=== PATIENT | female | born 1975 | race Caucasian/White ===

== ENCOUNTER 2019-10-11 09:34 | Outpatient (CLI) | payer OTHER, SELFPAY ==
--- NOTE | 2019-10-12 16:54 | ONC FU_ITS ---
Dr. De Santiago follow up note Patient: Love Pritchett Unit #: [id number]: [id number] Dicatated By: Flora De Santiago M.D.Date of Visit:Oct 11, 2019 Onc Med Follow-up/Prog Note History of Present Illness: Mrs. Love Pritchett, is a 44-year-old female with history of off and on epigastric pain associated with nausea vomiting diarrhea sometimes passage of mucus since March 2019. On 04/16/[address] scan of abdomen pelvis which showed stable cholecystectomy, mild to moderate bowel thickening in the distal small bowel including the terminal ileum consistent with [id number] infectious enteritis versus inflammatory bowel disease. Subsequently underwent EGD and colonoscopy on 04/28/2019 which showed in the lower third esophagus, reflux disease was present. In the prepyloric area, mild striped gastritis was seen. There was no mucosal bleeding. In the duodenal bulb, a sessile polyp 2 mm x 2 mm was seen, nonbleeding, polyp was hyperplastic in appearance and was completely excised by snare hot and final pathology report came back well-differentiated neuroendocrine tumor, low-grade, (carcinoid tumor). Patient underwent octreotide scan on 05/19/2019 and it came back normal. Colonoscopy was unremarkable Chromogranin A level was checked as per patient it was in the upper side of normal range. Follow-up CT scan of abdomen pelvis done on 07/09/2019 showed dissolved previous enterocolitis seen on 04/16/2019. No acute findings of abdomen pelvis. Prior cholecystectomy. Tiny nonobstructive lower pole left renal calculus. Came for follow-up, denies any specific complaints except occasionally nausea and vomiting but responding well to Zofran. No hemoptysis or hematemesis, no facial flushing, no bronchial wheezing, no diarrhea. As per patient she was on acid reduction therapy on a regular basis but then changed it to as-needed basis. Patient was referred to [facility] neuroendocrine oncology clinic for evaluation for clinical trial, as per patient she is scheduled to go there in January 2020. Medications: Estarylla 1 Tablet (of 0.25-35 mg - mcg) Oral daily, Lisinopril-hydroCHLOROthiazide 1 Tablet (of 20-25 mg) Oral daily Allergies: No Known Allergies. Review of Systems: Constitutional - Appetite is good and weight is stable. No fever, chills, hot flashes, or night sweats. Energy level is fair, ENMT - No sinus congestion/drainage. No mouth sores. No sore throat or difficulty swallowing, Hematologic/Lymphatic - No abnormal bruising or bleeding, Respiratory - No shortness of breath. No cough. No pleuritic pain or hemoptysis, Cardiovascular - No angina pain. No palpitations, Gastrointestinal - Positive for nausea and vomiting. No heartburn or acid reflux. Occasional diarrhea, no constipation. No blood in the stool or black stools, Genitourinary (F) - No dysuria or hematuria. No urinary frequency. No urgency or incontinence, Musculoskeletal - No joint or bone pain, Neurologic - No headache or dizziness. No numbness/paresthesias or other focal neurologic symptoms, Psychiatric - No anxiety or depression. No insomnia. Vital Signs: Performed on Oct 11, 2019 09:38 Height - 60.00 in Weight - 164.8 lbs (HIGH) BSA - 1.72 sq.m BMI - 32.19 (HIGH) Temperature - 98.4 F Pulse - 94 /min Respiration - 18 /min BP - 120/73 mm(hg) O2 Sat - 987 % (HIGH) Pain - 1 Performance Status: 0 - Fully active, able to carry on all predisease activities without restrictions. (ECOG) Physical Examination: ENMT - No oral exudates, ulcers, masses, thrush or mucositis. Oropharynx clear. Tongue normal, Respiratory - Lungs are clear to auscultation without rhonchi or wheezing, Cardiovascular - Regular rate and rhythm of heart, Abdomen - Non-tender, non-distended, Good bowel sounds. No guarding or rebound tenderness. No pulsatile masses, Extremities - no edema. Lab/Imaging: Most recent lab results are not available for this patient. Impression: Well-differentiated neuroendocrine tumor, low-grade ,( carcinoid tumor) in duodenal polyp status post EGD and polyp removal on 04/28/2019 Immunohistochemistry positive for CD 56, chromogranin A, CK cocktail, synaptophysin Ki-67 less than 3% positive nuclei Octreotide scan done on 05/19/[address] scan of abdomen pelvis done on 04/16/2019 Showed [id number] bowel thickening in the distal small bowel including the terminal ileum consistent with mild to moderate infectious enteritis versus inflammatory bowel disease. Plan: Discussed with patient regarding her concerns and questions, especially after no nausea or vomiting which could be due to underlying gastritis patient was suggested to discuss with regarding acid reduction therapy on regular basis then on as-needed basis as it can cause rebound hyperacidity thus nausea or vomiting. Other possibility could be psychogenic, patient appeared very anxious. There is a no signs symptoms suggestive of carcinoid related signs symptoms e.g. no facial flushing, no bronchial wheezing, no watery diarrhea, no abdominal pain more over at the time of diagnosis she had early-stage carcinoid tumor. Her chromogranin A level was on the upper side of normal and it was repeated today and result is pending. At this point no new recommendations rather awaiting evaluation at [facility] for clinical trials if available and she will return to clinic after her visit to [place] and if repeat chromogranin A level stay within normal range then we'll see her on as-needed basis. Signed By: Flora De Santiago M.D. <<Signature on File>>
[2019-10-14 09:46] LABS: Chromogranin A 38 ng/mL (25-140)
== END 2019-10-11 09:35 | disposition home or self-care (01) ==
LOC: ONCMED 09:36
PROVIDERS: Family Provider Family Medicine; PCP Family Medicine; Visit Provider Internal Medicine Hematology & Oncology
DX: C7A.010 Malignant carcinoid tumor of the duodenum (principal); K21.9 Gastro-esophageal reflux disease without esophagitis; N20.0 Calculus of kidney; Z79.899 Other long term (current) drug therapy
CPT/HCPCS: 36415; 86316; G0463

== ENCOUNTER → 2020-02-08 14:29 | Outpatient (BNVA) | payer OTHER, SELFPAY | PROVIDERS: Family Provider Family Medicine; PCP Family Medicine; Visit Provider Family Medicine | DX: Z12.31 Encounter for screening mammogram for malignant neoplasm of breast (principal) | CPT/HCPCS: 84450; 87070 ==

== ENCOUNTER → 2020-03-08 11:17 | Outpatient (BNVA) | payer OTHER, SELFPAY | PROVIDERS: Family Provider Family Medicine; PCP Family Medicine; Visit Provider Internal Medicine | DX: R50.9 Fever, unspecified (principal); Z20.828 Contact with and (suspected) exposure to other viral communicable diseases | CPT/HCPCS: 87635 ==

== ENCOUNTER → 2020-04-04 15:45 | Outpatient (BNVA) | payer OTHER, SELFPAY | PROVIDERS: Family Provider Family Medicine; PCP Family Medicine; Visit Provider Family Medicine | DX: R05 Cough (principal); Z20.828 Contact with and (suspected) exposure to other viral communicable diseases | CPT/HCPCS: 87635 ==

== ENCOUNTER 2020-04-14 15:29 | Outpatient (CLI) | payer OTHER, SELFPAY ==
--- NOTE | 2020-04-14 15:30 | MM_ITS ---
WS: [id number] BILATERAL DIGITAL SCREENING MAMMOGRAPHY WITH CAD CLINICAL INFORMATION: screening mammogram HISTORY: Screening mammogram. No current complaints. COMPARISON: TECHNIQUE: Bilateral CC and MLO views. FINDINGS: The breasts are composed of heterogeneous fibroglandular density tissue, which can limit the detectio n of small underlying mass lesions. 12 mm ovoid asymmetric density inferior left breast best seen on the MLO view is new from 2019. RECOMMEND SPOT COMPRESSION VIEWS AND ULTRASOUND LEFT BREAST FOR FURTHE R EVALUATION. Right breast is unremarkable and unchanged. MM/[place] [id number] IMPRESSION: BI-RADS: 0-Incomplete: Need additional imaging evaluation FOLLOW UP: Need Additional Imaging
== END 2020-04-14 15:30 | disposition home or self-care (01) ==
LOC: RADSHAW 15:33
PROVIDERS: PCP Family Medicine; Visit Provider Family Medicine
DX: Z12.31 Encounter for screening mammogram for malignant neoplasm of breast (principal); N64.89 Other specified disorders of breast
CPT/HCPCS: 77067

== ENCOUNTER 2020-06-20 15:20 | Outpatient (CLI) | payer OTHER, SELFPAY ==
--- NOTE | 2020-06-20 15:40 | XRR_ITS ---
PROCEDURE INFORMATION: Exam: XR Abdomen, 1 View Exam date and time: 06/20/2020 3:40 PM Age: 45 years old Clinical indication: Condition or disease; Kidney or ureter condition; Calculus (stone) in kidney; Prior surgery; Surgery date: 6+ months; Surgery type: Gallbladder; Patient HX: Follow up with urologist. No pain. HX of neuro endocrine cancer; Additional info: Calculus of kidney TECHNIQUE: Imaging protocol: XR of the abdomen. Views: Frontal supine view of the abdomen. 1 View. COMPARISON: CT abdomen pelvis con [id number] 07/09/2019 3:12 PM FINDINGS: Tubes, catheters and devices: Surgical clips related to cholecystectomy are noted the right upper quadrant. Gastrointestinal tract: Nonobstructive intestinal gas pattern demonstrated. Organs: No calcifications overlying the kidneys or along the expected course of the ureters. Bones/joints: No fracture or other acute osseous abnormality. Soft tissues: The soft tissues appear unremarkable. XR/XR KUB [id number] IMPRESSION: No acute abnormality demonstrated.
== END 2020-06-20 15:21 | disposition home or self-care (01) ==
PROVIDERS: PCP Family Medicine; Visit Provider Urology
DX: N20.0 Calculus of kidney (principal)
CPT/HCPCS: 74018; 81003

== ENCOUNTER 2020-06-21 09:05 | Outpatient (CLI) | payer OTHER, SELFPAY ==
--- NOTE | 2020-06-21 09:10 | US_ITS ---
WS: [id number] LEFT DIGITAL MAMMOGRAPHY WITH CAD CLINICAL INFORMATION: abnormal mammogram COMPARISON: April 14, 2020 TECHNIQUE: 3 views of the left breast were obtained. FINDINGS: The left breast is composed of heterogeneous fibroglandular density tissue, which can limit the detec tion of small underlying mass lesions. Stable 12 mm ovoid asymmetric density inferior left breast best seen on the MLO view. Ultrasound is p ending. ULTRASOUND BREAST LEFT TECHNIQUE: Ultrasound left breast focused area of concern. CLINICAL INFORMATION: abnormal mammogram COMPARISON: None. FINDINGS: Ultrasound left breast at the 9:00 position. Simple appearing cyst with through transmission measurin g 6.8 x 5.0 x 8.3 mm consistent with benign cyst. No other abnormalities. Recommend return to annual screening mammography. US/US breast LT limited* [id number] IMPRESSION: BI-RADS: 2-Benign FOLLOW UP: 1 Year Follow-up Recommend return to annual screening mammography.
== END 2020-06-21 09:06 | disposition home or self-care (01) ==
LOC: RADSHAW 09:08
PROVIDERS: PCP Family Medicine; Visit Provider Family Medicine
DX: R92.8 Other abnormal and inconclusive findings on diagnostic imaging of breast (principal); N60.02 Solitary cyst of left breast
CPT/HCPCS: 76642; 77065

== ENCOUNTER → 2020-09-26 08:19 | Outpatient (BNVA) | payer OTHER, SELFPAY | PROVIDERS: PCP Family Medicine; Visit Provider Family Medicine | DX: I10 Essential (primary) hypertension (principal); R10.9 Unspecified abdominal pain; Z68.33 Body mass index [BMI] 33.0-33.9, adult | CPT/HCPCS: 80053; 80061; 82043; 85025 ==

== ENCOUNTER → 2021-04-13 13:44 | Outpatient (BNVA) | payer OTHER, SELFPAY | PROVIDERS: PCP Family Medicine; Visit Provider Family Medicine | DX: I10 Essential (primary) hypertension (principal); Z13.6 Encounter for screening for cardiovascular disorders; D3A.8 Other benign neuroendocrine tumors; R10.9 Unspecified abdominal pain | CPT/HCPCS: 80053 ==

== ENCOUNTER → 2021-05-11 10:04 | Outpatient (BNVA) | payer OTHER, SELFPAY | PROVIDERS: PCP Family Medicine; Visit Provider Family Medicine | DX: N89.8 Other specified noninflammatory disorders of vagina (principal); N92.6 Irregular menstruation, unspecified | CPT/HCPCS: 87070; 87205 ==

== ENCOUNTER → 2021-07-27 08:37 | Outpatient (BNVA) | payer OTHER, SELFPAY | PROVIDERS: PCP Family Medicine; Visit Provider Surgery | DX: K21.9 Gastro-esophageal reflux disease without esophagitis (principal) | CPT/HCPCS: 87635 ==

== ENCOUNTER 2021-08-02 06:26 | Day surgery (SDC) | payer OTHER, SELFPAY ==
[2021-07-30 14:21] VITALS: BMI 30.2
[2021-08-02 06:45] VITALS: BP 114/69; PULSE 108; RESP 18; TEMP 36.5; O2SAT 99
--- NOTE | 2021-08-02 06:53 | P.HP_ITS ---
Same Day Surgery H&P Indication for Procedure/HPI DATE OF PROCEDURE: August 02, 2021 CHIEF COMPLAINT/INDICATIONFOR SURGICAL PROCEDURE: History of carcinoid PREOP DIAGNOSIS: Duodenal carcinoid PLANNED PROCEDRUE: Operation Date: 08/02/21 07:30 Proposed Procedures p EGD 12890 K21.9(Not Applicable) - Tommy Orozco MD 04/26/2021 This is a pleasant 46 years old female patient well-known to me from previous clinical encounter as she did undergo an EGD and colonoscopy back in 2018 and was found to have a duodenal polyp/nodule that was excised and found to have neuroendocrine tumor, reflux esophagitis and gastritis the colonoscopy was normal. Patient was subsequently referred to oncology service and had undergone extensive work-up and was referred to [facility] in [place] for further evaluation and had more work-up. Had an octreotide scan back in April 2019 and was normal, a PET CT scan was done with unremarkable findings., Patient was placed on tricyclic antidepressants for functional dyspepsia and she seemed to be doing okay with that. Undergone an EGD and endoscopic ultrasound back in March 15, 2020 and was found to have a scar of the previous polypectomy that I did excise back in and there was no evidence of residual or recurrent polypoid tissue. And endoscopic ultrasound there were no signs of significant pathology in the ampulla, and the duodenal bulb, and the second portion of the duodenum and in the third portion of the duodenum. Also colonoscopy was done the same day and showed normal findings in addition to the examined portion of the ileum was normal. Patient comes today to discuss potential surveillance endoscopies but unfortunately I do not have any specific recommendations from her GI service about timings of surveillances. Currently no symptoms reported. Interim history 08/02/2021 Patient comes today for surveillance EGD ROS All systems have been reviewed negative except as per the above or per problem list Medications/Allergies* Allergies/Adverse Reactions Allergy/AdvReac Type Severity Reaction Status Date / Time No Known Allergies Allergy Verified 08/02/21 06:55 Pertinent History/Comorbid Conditions* Medical History (Updated 05/11/21 @ 09:30 by Pinky Pond DO) Essential hypertension GERD (gastroesophageal reflux disease) Personal history of malignant neuroendocrine tumor Renal calculus, left Surgical History (Updated 09/08/19 @ 15:51 by Pinky Pond DO) History of cholecystectomy Family History (Updated 08/30/19 @ 11:35 by Josefina Payne LPN) Cancer Hypertension Social History Smoking and tobacco status: never smoked Alcohol intake: never Marital status: Current occupational status: employed Pertinent Exam Findings alert, oriented x 3, regular rate & rhythm and procedure specific exam findings (Abdominal examination nontender nondistended soft) Recommendations Surgery/Procedure today (Diagnostic EGD) Other Plans: Plan of care; After thorough history and physical examination and reviewing the chart, plan to perform a diagnostic esophagogastroduodenoscopy with possible biopsy in the GI lab. I discussed with the patient in detail the risk,benefits,alternatives and indications.The risk of aspiration, bleeding, soft tissue injury, perforation of the stomach/esophagus and other potential concomitant complications were explained to the patient in details,aslo the potential need for Thoracic and or Abdominal surgery to repair any complications.The patient understood this well and did agree to proceed. Rationale was carefully and clearly discussed with the patient.Appropriate informed consent have been reviewed and signed All questions have been answered and all concerns have been addressed to patient's satisfaction. Coding Level of Care Code Acute President Ceo & Founder for Gayatri Gaffney
[2021-08-02 06:57] LABS: OR HCG Qualitative Urine Negative (Negative)
[2021-08-02] MEDS: sodium chloride 0.9% 1,000 ML 30 ML IV (07:02)
--- NOTE | 2021-08-02 07:36 | ANES.PREANE2 ---
Documented by User: Lisa Cordova CRNA 08/02/21 07:40 Pre-Anesthetic Assessment Pre-Anesthetic Assessment: Height/Weight: Height 1.52 m Weight 70.307 kg Temp Pulse Resp BP Pulse Ox 97.7 F 108 H 18 114/69 99 08/02/21 06:45 08/02/21 06:45 08/02/21 06:45 08/02/21 06:45 08/02/21 06:45 Preop Diagnosis: Duodenal carcinoid Proposed Procedure: Operation Date: 08/02/21 07:30 Proposed Procedures p EGD 16753 K21.9(Not Applicable) - Tommy Orozco MD Last intake: Intake Last Liquid Date 08/01/21 Last Liquid Time 21:00 Last Solid Date 08/01/21 Last Solid Time 21:00 Social: Social History: No alcohol and No tobacco Exam: Pre-Anes Outpt Exam: alert, oriented x 3, clear to auscultation bilaterally and regular rate & rhythm Airway: Submandibular: WNL Cervical ROM: WNL MP: 3 Pulmonary: Pulmonary: None reported CV/HEM: CV/HEM: HTN : : None reported Hepatic: Hepatic: None reported GI: Comments: duodenal polyp, malignant Metabolic: Metabolic: None reported Musc/skel: Musc/skel: None reported Neuropsych: Neuropsych: None reported Anesthetic Plan: ASA status: 2 Anesthesia: Anesthesia Evaluation and MAC Risk of > 500 ml blood loss (7ml/kg in children): No Medications/Allergies Current Medications: Current Medications Generic Name Dose Route Start Last Admin Trade Name Freq PRN Reason Stop Dose Admin Sodium Chloride 1,000 mls @ 30 ml s/hr 08/02/21 07:15 08/02/21 07:02 Sodium Chloride 0.9% IV 30 mls/hr .Q24H YASSINE Administration PFSH Anesthesia PFSH: Medical History Essential hypertension GERD (gastroesophageal reflux disease) Personal history of malignant neuroendocrine tumor Renal calculus, left Surgical History History of cholecystectomy Family History Other Cancer Hypertension Social History Smoking and tobacco status: never smoked Alcohol intake: never Marital status: Current occupational status: employed Data Anesthesia Other Labs: Laboratory Results - last 48 hr 08/02/21 06:40 Urine HCG, Qual Negative Cardiac Studies: No Data to Display Documented by User: Cynthia Thomas DO 08/02/21 10:01 PFSH Anesthesia PFSH: Medical History Essential hypertension GERD (gastroesophageal reflux disease) Personal history of malignant neuroendocrine tumor Renal calculus, left Surgical History History of cholecystectomy Family History Other Cancer Hypertension Social History Smoking and tobacco status: never smoked Alcohol intake: never Marital status: Current occupational status: employed Data Anesthesia Cardiac Studies: No Data to Display
[2021-08-02 07:59] VITALS: BP 109/81; PULSE 96; RESP 18; TEMP 36.6; O2SAT 97
[2021-08-02 08:12] VITALS: BP 103/76; PULSE 82; RESP 16; O2SAT 96
--- NOTE | 2021-08-02 10:01 | ANE.PACU2 ---
Inpatient post-anesthesia follow up: Airway intact: Yes Vital signs: Temperature 97.8 F Pulse Rate 82 Respiratory Rate 16 Blood Pressure 103/76 Pulse Oximetry 96 Oxygen Delivery Me thod Room Air Oxygen Flow Rate Fraction of Inspir ed Oxygen Hydration adequate: Yes Nausea and vomiting: No Pain level: 1 Mental status: Baseline
== END 2021-08-02 08:15 | disposition home or self-care (01) ==
PROVIDERS: Anesthesiology; PCP Family Medicine; Visit Provider Surgery
PROC: 0DJ08ZZ Inspection of Upper Intestinal Tract, Via Natural or Artificial Opening Endoscopic (ICD-10-PCS; CPT 43235; principal; 2021-08-02 07:30)
DX: Z12.11 Encounter for screening for malignant neoplasm of colon (principal); K21.9 Gastro-esophageal reflux disease without esophagitis; K29.70 Gastritis, unspecified, without bleeding; Z85.89 Personal history of malignant neoplasm of other organs and systems; I10 Essential (primary) hypertension
CPT/HCPCS: 43239; 84703; 88305; 88342; J2704; J7030

== ENCOUNTER 2021-08-16 10:09 | Outpatient (CLI) | payer OTHER, SELFPAY ==
--- NOTE | 2021-08-16 10:00 | MM_ITS ---
WS: [id number] SCREENING DIGITAL MAMMOGRAM WITH CAD HISTORY: screening mammogram COMPARISON: 06/21/2020, 04/14/2020, 01/27/2019 Bilateral CC and MLO views submitted. Computer aided detection analyzed. Breast composition: There are scattered areas of fibroglandular density. Focal area of mild datastage architect ural distortion noted on the RIGHT CC projection just posterior to the nipple measures 9 mm. Distorti on is at the level of the nipple on the lateral projection. LEFT breast is stable. No additional or n [place]w mass. MM/[place] [id number] IMPRESSION: BI-RADS: 0-Incomplete: Need additional imaging evaluation FOLLOW UP: Need Additional Imaging RIGHT breast: Spot compression views (CC and MLO). True ML. Ultrasound to follo w if abnormality persists.
== END 2021-08-16 10:10 | disposition home or self-care (01) ==
LOC: RADSHAW 10:10
PROVIDERS: PCP Family Medicine; Visit Provider Family Medicine
DX: Z12.31 Encounter for screening mammogram for malignant neoplasm of breast (principal)
CPT/HCPCS: 77067

== ENCOUNTER 2021-08-16 14:12 | Outpatient (CLI) | payer OTHER, SELFPAY ==
--- NOTE | 2021-08-17 12:02 | ONC FU_ITS ---
Dr. De Santiago follow up note Patient: Love Pritchett Unit #: [id number]: [id number] Dicatated By: Flora De Santiago M.D.Date of Visit:Aug 16, 2021 Onc Med Follow-up/Prog Note History of Present Illness: Mrs. Love Pritchett, is a 46-year-old female with history of off and on epigastric pain associated with nausea vomiting diarrhea sometimes passage of mucus since March 2019. On 04/16/[address] scan of abdomen pelvis which showed stable cholecystectomy, mild to moderate bowel thickening in the distal small bowel including the terminal ileum consistent with [id number] infectious enteritis versus inflammatory bowel disease. Subsequently underwent EGD and colonoscopy on 04/28/2019 which showed in the lower third esophagus, reflux disease was present. In the prepyloric area, mild striped gastritis was seen. There was no mucosal bleeding. In the duodenal bulb, a sessile polyp 2 mm x 2 mm was seen, nonbleeding, polyp was hyperplastic in appearance and was completely excised by snare hot and final pathology report came back well-differentiated neuroendocrine tumor, low-grade, (carcinoid tumor). Patient underwent octreotide scan on 05/19/2019 and it came back normal. Colonoscopy was unremarkable Chromogranin A level was checked as per patient it was in the upper side of normal range. Follow-up CT scan of abdomen pelvis done on 07/09/2019 showed dissolved previous enterocolitis seen on 04/16/2019. No acute findings of abdomen pelvis. Prior cholecystectomy. Tiny nonobstructive lower pole left renal calculus., Patient was referred to [facility] she was evaluated on February 11, 2020, at that time she was recommended to consider gastrin level to rule out gastrinoma and chromogranin A level and also recommended EGD and CT PET scan Came for follow-up, denies any specific complaint except chronic abdominal pain, as per patient probably due to certain foods and now she is watching her diet. As per patient when she went to [facility] neuroendocrine oncology clinic, she was given nortriptyline. But denies any diarrhea or constipation denies any wheezing, denies any nausea or vomiting, denies any abdominal fullness, denies any skin rash but off-and-on facial flushing especially with abdominal pain., No weight loss. Came for follow-up, denies any specific complaints except occasionally nausea and vomiting but responding well to Zofran. No hemoptysis or hematemesis, no facial flushing, no bronchial wheezing, no diarrhea. As per patient she was on acid reduction therapy on a regular basis but then changed it to as-needed basis. Patient was referred to [facility] neuroendocrine oncology clinic for evaluation for clinical trial, as per patient she is scheduled to go there in January 2020. Medications: Estarylla 1 Tablet (of 0.25-35 mg - mcg) Oral daily, Lisinopril-hydroCHLOROthiazide 1 Tablet (of 20-25 mg) Oral daily Allergies: No Known Allergies. Review of Systems: Review of Systems is not available for this patient. Vital Signs: Performed on Aug 16, 2021 16:44 Height - 60.00 in Weight - 157.6 lbs (LOW) BSA - 1.69 sq.m BMI - 30.78 (HIGH) Temperature - 98.2 F (LOW) Pulse - 106 /min (HIGH) Respiration - 18 /min BP - 124/84 mm(hg) O2 Sat - 99 % Pain - 0 Fatigue - 0 Performance Status: 0 - Fully active, able to carry on all predisease activities without restrictions. (ECOG) Physical Examination: ENMT - No mouth sores, no thrush, no jaundice, Respiratory - Lungs are clear to auscultation, Cardiovascular - Regular rate and rhythm of heart, Abdomen - Soft, bowel sounds present, Extremities - No visible edema. Lab/Imaging: Most recent lab results are not available for this patient. Impression: Well-differentiated neuroendocrine tumor, low-grade ,( carcinoid tumor) in duodenal polyp status post EGD and polyp removal on 04/28/2019 Immunohistochemistry positive for CD 56, chromogranin A, CK cocktail, synaptophysin Ki-67 less than 3% positive nuclei Octreotide scan done on 05/19/[address] scan of abdomen pelvis done on 04/16/2019 Showed [id number] bowel thickening in the distal small bowel including the terminal ileum consistent with mild to moderate infectious enteritis versus inflammatory bowel disease. Plan: Discussed with patient regarding her disease status and follow-up plan, patient was referred to [facility] neuroendocrine and as per their evaluation, it was not sure whether her abdominal pain was due to neuroendocrine tumor but there was a concern about possibility of nonfunctional neuroendocrine tumor so follow-up with chromogranin A, gastrin level and repeat EGD and with CT PET scan was suggested initially every 6-month then every year At this point we will consider repeating her gastrin level, serotonin level, chromogranin A level and 24-hour urine for 5-HIAA and then patient will return to clinic in 2 weeks, with CBC, CMP will review the work-up and consider CT PET scan and also refer her to GI for EGD. Signed By: Flora De Santiago M.D. <<Signature on File>>
[2021-08-21 21:48] LABS: Gastrin 57 pg/mL (< OR = 100)
== END 2021-08-16 14:13 | disposition home or self-care (01) ==
PROVIDERS: PCP Family Medicine; Visit Provider Internal Medicine Hematology & Oncology
DX: R10.13 Epigastric pain (principal); R11.2 Nausea with vomiting, unspecified; R19.7 Diarrhea, unspecified; D3A.010 Benign carcinoid tumor of the duodenum
CPT/HCPCS: 36415; 82941; 88262; 99214

== ENCOUNTER 2021-08-21 08:16 | Outpatient (CLI) | payer OTHER, SELFPAY ==
[2021-08-26 19:18] LABS: Chromogranin A LC/MS/MS 126 ng/mL (ADULTS: <311)
[2021-08-28 12:48] LABS: Serotonin Whole Blood 163 ng/mL (56-244)
== END 2021-08-21 08:17 | disposition home or self-care (01) ==
PROVIDERS: PCP Family Medicine; Visit Provider Internal Medicine Hematology & Oncology
DX: D3A.8 Other benign neuroendocrine tumors (principal); I10 Essential (primary) hypertension; K21.9 Gastro-esophageal reflux disease without esophagitis; R11.0 Nausea; R10.13 Epigastric pain; Z86.16 Personal history of COVID-19
CPT/HCPCS: 36415; 84260; 86316

== ENCOUNTER 2021-08-24 09:37 | Outpatient (CLI) | payer OTHER, SELFPAY ==
[2021-08-30 19:27] LABS: 24 Hour Urine Volume 2450 mL; 5-HIAA, 24 Hour Urine 2.7 mg/24 h (<=6.0)
== END 2021-08-24 09:38 | disposition home or self-care (01) ==
LOC: LAB 10:16
PROVIDERS: PCP Family Medicine; Visit Provider Internal Medicine Hematology & Oncology
DX: C7A.1 Malignant poorly differentiated neuroendocrine tumors (principal)
CPT/HCPCS: 83497

== ENCOUNTER 2021-08-28 09:02 | Outpatient (CLI) | payer OTHER, SELFPAY ==
--- NOTE | 2021-08-28 09:00 | MM_ITS ---
WS: [id number] ADDITIONAL VIEWS RIGHT BREAST RIGHT breast ultrasound, limited HISTORY: abnormal mammo COMPARISON: 06/21/2020, 08/16/2021 and 04/14/2020 Compression views right CC and MLO projection. True ML also submitted. The architectural distortion s een just lateral to the nipple on the screening mammogram resolves with additional imaging. There is dense fibroglandular tissue now present but there is no tethering or distortion. Ultrasound will be p erformed. RIGHT breast ultrasound, limited. At 9:00 in the subareolar location is a 4 x 6 x 4 mm cyst. In the subareolar region there is no archi tectural distortion or mass identified. MM/[place] [id number] IMPRESSION: BI-RADS: 2-Benign FOLLOW-UP: 1 Year Follow-up
--- NOTE | 2021-08-28 09:30 | US_ITS ---
WS: [id number] ADDITIONAL VIEWS RIGHT BREAST RIGHT breast ultrasound, limited HISTORY: abnormal mammo COMPARISON: 06/21/2020, 08/16/2021 and 04/14/2020 Compression views right CC and MLO projection. True ML also submitted. The architectural distortion s een just lateral to the nipple on the screening mammogram resolves with additional imaging. There is dense fibroglandular tissue now present but there is no tethering or distortion. Ultrasound will be p erformed. RIGHT breast ultrasound, limited. At 9:00 in the subareolar location is a 4 x 6 x 4 mm cyst. In the subareolar region there is no archi tectural distortion or mass identified. US/US breast RT limited* [id number] IMPRESSION: BI-RADS: 2-Benign FOLLOW-UP: 1 Year Follow-up
== END 2021-08-28 09:03 | disposition home or self-care (01) ==
LOC: RADSHAW 09:04
PROVIDERS: PCP Family Medicine; Visit Provider Family Medicine
DX: R92.8 Other abnormal and inconclusive findings on diagnostic imaging of breast (principal)
CPT/HCPCS: 76642; 77065

== ENCOUNTER 2021-08-31 08:09 | Outpatient (CLI) | payer OTHER, SELFPAY ==
[2021-08-31 08:40] LABS: Basophils # 0.1 10^3/uL (0.0-0.1); Basophils % 0.4 %; Eosinophils % 0.1 %; Hematocrit 48.7 % (37.0-47.0); Hemoglobin 16.4 g/dL (11.5-15.3); Lymphocytes % 14.1 %; Mean Corpuscular HGB Conc 33.7 g/dL (30.0-36.0); Mean Corpuscular Hemoglobin 30.3 pg (28.0-34.0); Monocytes # 0.6 10^3/uL (0.2-0.9); Monocytes % 4.3 %; Neutrophils % 80.8 %; Nucleated Red Blood Cells % 0 %; Platelet Count 439 10^3/cmm (130-400); Red Blood Count 5.41 10^6/uL (4.1-5.3); Red Cell Distribution Width 12.5 % (12.1-15.1); White Blood Count 14.4 10^3/uL (4.0-10.0)
[2021-08-31 09:04] LABS: Alanine Aminotransferase 11 U/L (0-33); Albumin Level 4.5 g/dL (3.5-5.2); Alkaline Phosphatase 70 IU/L (35-105); Aspartate Amino Transferase 10 U/L (0-32); Blood Urea Nitrogen 13 mg/dL (6-20); Calcium 9.2 mg/dL (8.5-10.5); Carbon Dioxide 24 mmol/L (22-29); Chloride 98 mmol/L (98-107); Glomerular Filtration Rate 76.9 mL/min (90-130); Glucose 136 mg/dL (65-115); Osmolality Calculated 284 mOsm/kg (285-295); Sodium 136 mmol/L (136-145); Total Bilirubin 0.5 mg/dL (0.15-1.2); Total Protein 7.5 g/dL (6.6-8.7)
--- NOTE | 2021-09-03 18:26 | ONC FU_ITS ---
Dr. De Santiago follow up note Patient: Love Pritchett Unit #: [id number]: 1975 Dicatated By: Flora De Santiago M.D.Date of Visit:Aug 31, 2021 Onc Med Follow-up/Prog Note History of Present Illness: Mrs. Love Pritchett, is a 46-year-old female with history of off and on epigastric pain associated with nausea vomiting diarrhea sometimes passage of mucus since March 2019. On 04/16/[address] scan of abdomen pelvis which showed stable cholecystectomy, mild to moderate bowel thickening in the distal small bowel including the terminal ileum consistent with wjzv-[id number]-hvszhtcz infectious enteritis versus inflammatory bowel disease. Subsequently underwent EGD and colonoscopy on 04/28/2019 which showed in the lower third esophagus, reflux disease was present. In the prepyloric area, mild striped gastritis was seen. There was no mucosal bleeding. In the duodenal bulb, a sessile polyp 2 mm x 2 mm was seen, nonbleeding, polyp was hyperplastic in appearance and was completely excised by snare hot and final pathology report came back well-differentiated neuroendocrine tumor, low-grade, (carcinoid tumor). Patient underwent octreotide scan on 05/19/2019 and it came back normal. Colonoscopy was unremarkable Chromogranin A level was checked as per patient it was in the upper side of normal range. Follow-up CT scan of abdomen pelvis done on 07/09/2019 showed dissolved previous enterocolitis seen on 04/16/2019. No acute findings of abdomen pelvis. Prior cholecystectomy. Tiny nonobstructive lower pole left renal calculus. Underwent EGD on July 27, 2021, as per patient it was normal exam Follow-up lab work-up done on August 21, 2021 including serotonin was 163, normal being 56 to 244, chromogranin A level 126, normal being less than 311, gastrin level 57, normal being less than 100, 24-hour urine follow-up 5-HIAA was also within normal range, 2.7 normal being less than 6 Came for follow-up, denies any specific complaint except off and on mid abdominal pain associated with facial flushing, as per patient, it is associated with certain foods, but overall it is improving and less frequent as she is watching her diet. No diarrhea, no wheezing, no skin rash, no jaundice, no abdominal fullness, no shortness of breath, no palpitation, no fever chills. Recently underwent EGD which was, as per patient unremarkable Medications: Estarylla 1 Tablet (of 0.25-35 mg - mcg) Oral daily, Lisinopril-hydroCHLOROthiazide 1 Tablet (of 20-25 mg) Oral daily Allergies: No Known Allergies. Review of Systems: Review of Systems is not available for this patient. Vital Signs: Performed on Aug 31, 2021 08:47 Height - 60.00 in Weight - 153.2 lbs (LOW) BSA - 1.67 sq.m BMI - 29.92 Temperature - 97.8 F (LOW) Pulse - 73 /min Respiration - 18 /min BP - 118/85 mm(hg) O2 Sat - 97 % Pain - 0 Fatigue - 2 Performance Status: 0 - Fully active, able to carry on all predisease activities without restrictions. (ECOG) Physical Examination: ENMT - No mouth sores, no thrush, no jaundice, Respiratory - Lungs are clear to auscultation, Cardiovascular - Regular rate and rhythm of heart, Abdomen - Soft, bowel sounds present, Extremities - No visible edema. Lab/Imaging: Most recent lab results are not available for this patient. Impression: Well-differentiated neuroendocrine tumor, low-grade ,( carcinoid tumor) in duodenal polyp status post EGD and polyp removal on 04/28/2019 Immunohistochemistry positive for CD 56, chromogranin A, CK cocktail, synaptophysin Ki-67 less than 3% positive nuclei Octreotide scan done on 05/19/[address] scan of abdomen pelvis done on 04/16/2019 Showed [id number]-[id number] bowel thickening in the distal small bowel including the terminal ileum consistent with mild to moderate infectious enteritis versus inflammatory bowel disease. Plan: Discussed with patient regarding her labs white blood count 14.4 hemoglobin 16.4 hematocrit 48.7 platelets 439,000 ANC 1160, CMP within normal limit except glucose 136 Lab work-up pertaining to neuroendocrine tumor including serotonin, chromogranin A level, gastrin level and 24-hour urine for 5-HIAA, checked on August 21, 2021, came back within normal range Clinically, patient doing well with no new signs symptom suggestive of recurrence of disease but persistent off and on abdominal pain and associated with facial flushing is causing concern regarding neuroendocrine recurrence, could be nonsecretory type as her serum serotonin level, chromogranin A level, even gastrin level and 24-hour urine for 5-HIAA is within normal range, so at this point we will consider CT scan of chest abdomen pelvis to rule out recurrence of disease. Patient underwent EGD on July 27, 2021, as per patient it was unremarkable, will obtain EGD report and review. Patient will return to clinic after CT scan of chest abdomen pelvis for further discussion, patient was advised in case there is a worsening of abdominal pain she need to call us or go to hospital. Today's lab work-up shows mild leukocytosis and mild polycythemia/thrombocytosis etiology unclear, patient has no signs symptom suggestive of infection, will monitor her closely with repeat CBC Return to clinic after CT scan of chest abdomen pelvis with CBC. Signed By: Flora De Santiago M.D. <<Signature on File>>
== END 2021-08-31 08:10 | disposition home or self-care (01) ==
PROVIDERS: PCP Family Medicine; Visit Provider Internal Medicine Hematology & Oncology
DX: D3A.8 Other benign neuroendocrine tumors (principal); I10 Essential (primary) hypertension; K21.9 Gastro-esophageal reflux disease without esophagitis; D72.829 Elevated white blood cell count, unspecified; D75.1 Secondary polycythemia; Z79.899 Other long term (current) drug therapy
CPT/HCPCS: 36415; 80053; 85025; 99214

== ENCOUNTER 2021-09-11 13:51 | Outpatient (CLI) | payer OTHER, SELFPAY ==
--- NOTE | 2021-09-11 14:11 | CTR_ITS ---
PROCEDURE INFORMATION: Exam: CT Chest With Contrast; Diagnostic Exam date and time: 09/11/2021 2:11 PM Age: 46 years old Clinical indication: Pain; Other: Bone; Prior surgery; Surgery type: Gallbladder; Additional info: Neuroendocrine tumor/bone pain TECHNIQUE: Imaging protocol: Diagnostic computed tomography of the chest with contrast. Radiation optimization: All CT scans at this facility use at least one of these dose optimization techniques: automated exposure control; mA and/or kV adjustment per patient size (includes targeted exams where dose is matched to clinical indication); or iterative reconstruction. Contrast material: OMNIPAQUE 350; Contrast volume: 95 ml; Contrast route: INTRAVENOUS (IV); COMPARISON: CT abdomen pelvis con [id number] 07/09/2019 3:12 PM RADIATION DOSE METRICS: Total DLP (mGy-cm): 1509.45 FINDINGS: Lungs: The lungs are clear. Pleural spaces: Unremarkable. No pneumothorax. No pleural effusion. Heart: The heart is normal in size. Aorta: Unremarkable. No aortic aneurysm. Lymph nodes: Unremarkable. No enlarged lymph nodes. Bones/joints: Unremarkable. No acute fracture. Soft tissues: Unremarkable. PROCEDURE INFORMATION: Exam: CT Abdomen And Pelvis With Contrast Exam date and time: 09/11/2021 2:11 PM Age: 46 years old Clinical indication: Pain; Other: Bone; Prior surgery; Surgery type: Gallbladder; Additional info: Neuroendocrine tumor/bone pain TECHNIQUE: Imaging protocol: Computed tomography of the abdomen and pelvis with contrast. Radiation optimization: All CT scans at this facility use at least one of these dose optimization techniques: automated exposure control; mA and/or kV adjustment per patient size (includes targeted exams where dose is matched to clinical indication); or iterative reconstruction. Contrast material: OMNIPAQUE 350; Contrast volume: 95 ml; Contrast route: INTRAVENOUS (IV); COMPARISON: CT abdomen pelvis con [id number] 07/09/2019 3:12 PM RADIATION DOSE METRICS: Total DLP (mGy-cm): 1509.45 FINDINGS: Liver: Normal. No mass. Gallbladder and bile ducts: The gallbladder has been removed. No biliary ductal dilatation. Pancreas: Normal. No ductal dilation. Spleen: Normal. No splenomegaly. Adrenal glands: Normal. No mass. Kidneys and ureters: A tiny renal stone is present in the inferior pole of the left kidney. The kidneys appear otherwise normal. No hydronephrosis. Stomach and bowel: No intestinal obstruction. A large amount of stool is present in the colon. Appendix: The appendix is normal. Intraperitoneal space: Unremarkable. No free air. No significant fluid collection. Vasculature: Unremarkable. No abdominal aortic aneurysm. Lymph nodes: Unremarkable. No enlarged lymph nodes. Urinary bladder: Unremarkable as visualized. Reproductive: Unremarkable as visualized. Bones/joints: Unremarkable. No acute fracture. Soft tissues: Unremarkable. CT/CT chest abd pel w con* IMPRESSION: No acute cardiopulmonary abnormality. IMPRESSION: 1. No acute abnormality is seen in the abdomen or pelvis. 2. Constipation. 3. Nonobstructing left kidney renal stone.
[2021-09-11] MEDS: iohexol 300 mg/mL 50 mL Btl PO (14:52)
[2021-09-11] MEDS: iohexol 300 mg/mL 100 mL Btl IV (15:50)
== END 2021-09-11 13:52 | disposition home or self-care (01) ==
LOC: RAD 13:54
PROVIDERS: PCP Family Medicine; Visit Provider Internal Medicine Hematology & Oncology
DX: D3A.8 Other benign neuroendocrine tumors (principal); K59.00 Constipation, unspecified; N20.0 Calculus of kidney
CPT/HCPCS: 71260; 74177

== ENCOUNTER 2021-09-19 09:20 | Outpatient (CLI) | payer OTHER, SELFPAY ==
[2021-09-19 09:42] LABS: Basophils # 0.1 10^3/uL (0.0-0.1); Basophils % 0.6 %; Eosinophils % 0.5 %; Hematocrit 41.7 % (37.0-47.0); Hemoglobin 13.9 g/dL (11.5-15.3); Lymphocytes # 2.3 10^3/uL (0.8-4.8); Lymphocytes % 26.9 %; Mean Corpuscular HGB Conc 33.3 g/dL (30.0-36.0); Mean Corpuscular Hemoglobin 30.8 pg (28.0-34.0); Mean Corpuscular Volume 92.5 fl (81-99); Mean Platelet Volume 10.7 fL (7.4-10.4); Monocytes # 0.4 10^3/uL (0.2-0.9); Monocytes % 5.1 %; Neutrophils # 5.71 10^3/uL (1.8-7.7); Neutrophils % 66.6 %; Nucleated Red Blood Cells % 0 %; Platelet Count 358 10^3/cmm (130-400); Red Blood Count 4.51 10^6/uL (4.1-5.3); Red Cell Distribution Width 12.3 % (12.1-15.1); White Blood Count 8.6 10^3/uL (4.0-10.0)
[2021-09-19 10:13] LABS: Alanine Aminotransferase 13 U/L (0-33); Albumin Level 4.7 g/dL (3.5-5.2); Alkaline Phosphatase 68 IU/L (35-105); Anion Gap 17.8 (5-19); Aspartate Amino Transferase 12 U/L (0-32); Blood Urea Nitrogen 13 mg/dL (6-20); Calcium 9.4 mg/dL (8.5-10.5); Carbon Dioxide 22 mmol/L (22-29); Chloride 101 mmol/L (98-107); Globulin 3.3 g/dL (1.3-4.6); Glomerular Filtration Rate 89.7 mL/min (90-130); Glucose 105 mg/dL (65-115); Osmolality Calculated 284 mOsm/kg (285-295); Potassium 3.8 mmol/L (3.5-5.1); Sodium 137 mmol/L (136-145); Total Bilirubin 0.5 mg/dL (0.15-1.2)
--- NOTE | 2021-09-19 16:49 | ONC FU_ITS ---
Dr. De Santiago follow up note Patient: Love Pritchett Unit #: [id number]: 1975 Dicatated By: Flora De Santiago M.D.Date of Visit:Sep 19, 2021 Onc Med Follow-up/Prog Note History of Present Illness: Mrs. Love Pritchett, is a 46-year-old female with history of off and on epigastric pain associated with nausea vomiting diarrhea sometimes passage of mucus since March 2019. On 04/16/[address] scan of abdomen pelvis which showed stable cholecystectomy, mild to moderate bowel thickening in the distal small bowel including the terminal ileum consistent with [id number]-[id number] infectious enteritis versus inflammatory bowel disease. Subsequently underwent EGD and colonoscopy on 04/28/2019 which showed in the lower third esophagus, reflux disease was present. In the prepyloric area, mild striped gastritis was seen. There was no mucosal bleeding. In the duodenal bulb, a sessile polyp 2 mm x 2 mm was seen, nonbleeding, polyp was hyperplastic in appearance and was completely excised by snare hot and final pathology report came back well-differentiated neuroendocrine tumor, low-grade, (carcinoid tumor). Patient underwent octreotide scan on 05/19/2019 and it came back normal. Colonoscopy was unremarkable Chromogranin A level was checked as per patient it was in the upper side of normal range. Follow-up CT scan of abdomen pelvis done on 07/09/2019 showed dissolved previous enterocolitis seen on 04/16/2019. No acute findings of abdomen pelvis. Prior cholecystectomy. Tiny nonobstructive lower pole left renal calculus. Underwent EGD on July 27, 2021, as per patient it was normal exam Follow-up lab work-up done on August 21, 2021 including serotonin was 163, normal being 56 to 244, chromogranin A level 126, normal being less than 311, gastrin level 57, normal being less than 100, 24-hour urine follow-up 5-HIAA was also within normal range, 2.7 normal being less than 6 Follow-up CT scan of chest abdomen pelvis done on September 11, 2021 showed no abnormality in the chest, no acute abnormality seen in her abdomen pelvis, constipation, nonobstructing left kidney renal stone Came for follow-up, denies any specific complaint, however off and on epigastric pain is improving with diet modification. No facial flushing, no bronchial wheezing, no diarrhea or constipation, no skin rash, no jaundice, no abdominal fullness, appetite is good Medications: Estarylla 1 Tablet (of 0.25-35 mg - mcg) Oral daily, Lisinopril-hydroCHLOROthiazide 1 Tablet (of 20-25 mg) Oral daily, Nortriptyline HCl (25 mg) Capsule Oral daily Allergies: No Known Allergies. Review of Systems: Review of Systems is not available for this patient. Vital Signs: Performed on Sep 19, 2021 12:23 Height - 60.00 in Weight - 154.8 lbs (HIGH) BSA - 1.67 sq.m BMI - 30.23 (HIGH) Temperature - 97.8 F (LOW) Pulse - 94 /min Respiration - 16 /min BP - 125/83 mm(hg) O2 Sat - 98 % Pain - 0 Fatigue - 1 Performance Status: 0 - Fully active, able to carry on all predisease activities without restrictions. (ECOG) Physical Examination: ENMT - No mouth sores, no thrush, no jaundice, Respiratory - Lungs are clear to auscultation, Cardiovascular - Regular rate and rhythm of heart, Abdomen - Soft, bowel sounds present, Extremities - No visible edema. Lab/Imaging: Most recent lab results are not available for this patient. Impression: Well-differentiated neuroendocrine tumor, low-grade ,( carcinoid tumor) in duodenal polyp status post EGD and polyp removal on 04/28/2019 Immunohistochemistry positive for CD 56, chromogranin A, CK cocktail, synaptophysin Ki-67 less than 3% positive nuclei Octreotide scan done on 05/19/[address] scan of abdomen pelvis done on 04/16/2019 Showed [id number]-ca-[id number] bowel thickening in the distal small bowel including the terminal ileum consistent with mild to moderate infectious enteritis versus inflammatory bowel disease. Plan: Discussed with patient regarding her labs white blood count 8.6 compared to 14.4 on 11/28/2021, hemoglobin 13.9 g compared to 16.4 previously hematocrit 41.7 compared to 48.7 on 11/28/2021 platelets 358,000 CMP within normal limits and follow-up CT scan of chest abdomen pelvis done on September 11, 2021 showed no evidence of disease, nonobstructive left renal stone. Clinically, patient doing well with no new signs symptoms suggestive of recurrence of carcinoid tumor her follow-up biochemical profile for carcinoid was within normal range and follow-up CT scan of chest abdomen pelvis showed no evidence of disease., This point no further recommendation rather continue to monitor. Patient would prefer to follow-up with PMD Dr. Pond so we will recommend checking serum serotonin, chromogranin A level, gastrin level, 24-hour urine for 5-HIAA level every 6 months and if any new symptoms, CT scan of abdomen pelvis. We will see her on as-needed basis Signed By: Flora De Santiago M.D. <<Signature on File>>
== END 2021-09-19 09:21 | disposition home or self-care (01) ==
PROVIDERS: PCP Family Medicine; Visit Provider Internal Medicine Hematology & Oncology
DX: Z08 Encounter for follow-up examination after completed treatment for malignant neoplasm (principal); Z85.89 Personal history of malignant neoplasm of other organs and systems; K52.3 Indeterminate colitis; Z79.899 Other long term (current) drug therapy
CPT/HCPCS: 36415; 80053; 85025; 99214

== ENCOUNTER → 2021-12-11 09:25 | Outpatient (BNVA) | payer OTHER, SELFPAY | PROVIDERS: PCP Family Medicine; Visit Provider Family Medicine | DX: I10 Essential (primary) hypertension (principal); R11.0 Nausea; C7A.010 Malignant carcinoid tumor of the duodenum | CPT/HCPCS: 80061 ==

== ENCOUNTER → 2022-03-28 08:51 | Outpatient (BNVA) | payer OTHER, SELFPAY | PROVIDERS: PCP Family Medicine; Visit Provider Family Medicine | DX: I10 Essential (primary) hypertension (principal); R00.2 Palpitations | CPT/HCPCS: 80053; 80061; 82043; 84443; 85025 ==

== ENCOUNTER 2022-05-29 12:16 | Outpatient (CLI) | payer OTHER, SELFPAY ==
[2022-05-29] MEDS: iohexol 350 mg/mL 100 mL Btl IV (14:17)
[2022-05-29] MEDS: iohexol 350 mg/mL 100 mL Btl PO (14:17)
--- NOTE | 2022-05-29 15:15 | CT_ITS ---
WS: [id number] CT ABDOMEN AND PELVIS WITH CONTRAST HISTORY: carcinoid TECHNIQUE: Imaging performed of the abdomen and pelvis with IV contrast. Single phase imaging of the abdomen. Coronal and sagittal reformats are submitted. All CT scans at [facility] use at [address] one of these dose optimization techniques: automated exposure control; mA and/or kV adjustment per patient size (includes targeted exams where dose is matched to clinical indication); or iterative re construction. IV CONTRAST: Omnipaque 350; 95 mL IV. Oral contrast: Yes. DLP: 1057.62 mGy.cm COMPARISON: 09/11/2021 Lower thorax: Lung bases are clear. Heart is normal size. No hiatal hernia. Liver/biliary system: Normal size with no intrahepatic dilatation. Gallbladder: Status post cholecystectomy. Pancreas: Normal size pancreas and pancreatic duct. No adjacent inflammation. Spleen: Normal size spleen. No mass or infarct. Adrenal glands: Normal. Right kidney: Normal. Left kidney: Normal. Aorta: Normal. Lymphadenopathy: None. Free fluid: None. GI tract: Distended stomach. No duodenal abnormality or abnormal enhancement identified. The appendix is not definitely identified. No colon obstruction. Moderate diffuse constipation. Abdominal wall: Unremarkable abdominal wall. No hernia. Pelvis: Well-distended urinary bladder. Uterus and ovaries are negative. No free fluid or adenopathy. Bones: Unremarkable. CT/CT abdomen pelvis w con* [id number] IMPRESSION: 1. Negative CT abdomen and pelvis for acute process. 2. No metastatic disease to the liver. 3. Prior cholecystectomy. 4. No mesenteric masses or central calcifications.
[2022-06-10 13:28] LABS: Serotonin Whole Blood 164 ng/mL (56-244)
[2022-06-10 13:57] LABS: Gastrin 34 pg/mL (< OR = 100)
[2022-06-12 14:03] LABS: Chromogranin A LC/MS/MS 122 ng/mL (ADULTS: <311)
== END 2022-05-29 12:17 | disposition home or self-care (01) ==
LOC: RAD 12:17
PROVIDERS: PCP Family Medicine; Visit Provider Family Medicine
DX: C7A.010 Malignant carcinoid tumor of the duodenum (principal); Z90.49 Acquired absence of other specified parts of digestive tract
CPT/HCPCS: 74177; 82941; 84260; 86316; Q9967

== ENCOUNTER 2022-06-02 10:19 | Outpatient (CLI) | payer OTHER, SELFPAY ==
[2022-06-18 16:49] LABS: 24 Hour Urine Volume 2150 mL; 5-HIAA, 24 Hour Urine 2.9 mg/24 h (< OR = 6.0)
== END 2022-06-02 10:20 | disposition home or self-care (01) ==
LOC: RAD 10:22
PROVIDERS: PCP Family Medicine; Visit Provider Family Medicine
DX: C7A.010 Malignant carcinoid tumor of the duodenum (principal)
CPT/HCPCS: 83497

== ENCOUNTER 2022-06-05 12:43 | Outpatient (CLI) | payer OTHER, SELFPAY ==
--- NOTE | 2022-06-05 13:00 | USCV_ITS ---
Love Pritchett Age: 47 Gender: F : 1975 Exam Date: 06/05/2022 12:54 Ordering Phys: Pinky Pond DO Technologist: Sandra Leach Exam Location: [facility] [place] Indication: Palpitations, history of carcinoid BP: 120 / 80 HR: 101 Rhythm: Sinus Technical Quality: Adequate MEASUREMENTS (Male / Female) Normal Values 2D ECHO LV Diastolic Diameter PLAX 4.0 cm 4.2 - 5.9 / 3.9 - 5.3 cm LV Systolic Diameter PLAX 2.5 cm IVS Diastolic Thickness 1.2 cm 0.6 - 1.0 / 0.6 - 0.9 cm IVS Systolic Thickness 1.1 cm LVPW Diastolic Thickness 0.9 cm 0.6 - 1.0 / 0.6 - 0.9 cm LVPW Systolic Thickness 1.8 cm LVOT Diameter 2.0 cm LV Ejection Fraction 2D Teich 69.2 % LV Ejection Fraction MOD 2C 60.2 % LV Ejection Fraction 2C AL 60.4 % LA Diameter 2.5 cm LA Width 2.9 cm LA Height 4.8 cm RA Width 3.5 cm RA Height 4.0 cm Aorta at Sinotubular Diameter 2.3 cm IVC Diameter 0.9 cm M-MODE MV E Point Septal Separation 0.3 cm DOPPLER AV Peak Velocity 147.0 cm/s LVOT Peak Velocity 123.0 cm/s AV Area Cont Eq vti 2.7 cm squared AV Area Cont Eq pk 2.8 cm squared MV Peak Velocity 109.0 cm/s MV Area PHT 5.0 cm squared Mitral E to A Ratio 1.0 MV E' Velocity 52.5 cm/s Mitral E to MV E' Ratio 8.7 Mitral E to LV E' Lateral Ratio 8.4 Mitral E to LV E' Septal Ratio 9.1 TR Peak Velocity 102.5 cm/s TR Peak Gradient 4.2 mmHg Right Atrial Pressure 3.0 mmHg Pulmonary Artery Systolic Pressu 7.2 mmHg PV Peak Velocity 99.0 cm/s RV Acceleration Time 0.2 s RV Ejection Time 0.3 s RV AcT/ET 0.6 FINDINGS Left Ventricle Left ventricle is normal in size. LV systolic function is normal with EF 55 to 60%. No regional wall motion abnormalities are seen. Right Ventricle Normal in size and function Right Atrium Normal in size Left Atrium Normal in size Mitral Valve Structurally normal mitral valve. Trace mitral regurgitation. Aortic Valve Structurally normal aortic valve. No significant stenosis or regurgitation. Tricuspid Valve Trace tricuspid regurgitation. Pulmonary artery systolic pressure is normal Pulmonic Valve Not well-visualized Pericardium Normal Aorta Normal in size IVC IVC appears to be normal CONCLUSIONS LV systolic function is normal with EF of 55-60% Trace mitral regurgitation Trace tricuspid regurgitation No comparison studies are available Ronald Hernandez MD (Electronically Signed) Final Date: 14 June 2022 11:18 S
== END 2022-06-05 12:44 | disposition home or self-care (01) ==
LOC: RAD 12:44
PROVIDERS: PCP Family Medicine; Visit Provider Family Medicine
DX: C7A.010 Malignant carcinoid tumor of the duodenum (principal); R00.2 Palpitations; I08.1 Rheumatic disorders of both mitral and tricuspid valves
CPT/HCPCS: 93306

== ENCOUNTER → 2022-06-17 08:54 | Outpatient (BNVA) | payer OTHER, SELFPAY | PROVIDERS: PCP Family Medicine; Visit Provider Obstetrics & Gynecology | DX: Z01.419 Encounter for gynecological examination (general) (routine) without abnormal findings (principal); Z12.39 Encounter for other screening for malignant neoplasm of breast; N92.6 Irregular menstruation, unspecified | CPT/HCPCS: 87624 ==

== ENCOUNTER 2022-06-25 12:47 | Outpatient (CLI) | payer OTHER, SELFPAY ==
--- NOTE | 2022-06-25 12:52 | XR_ITS ---
WS: [id number] KUB, AP view, 06/25/2022 Clinical Data: Renal Calculus Comparison: KUB, 06/20/2020 Findings: No abnormal intraabdominal masses or calcifications are seen. There is no dilatated small bowel or ev idence of obstruction. There are clips in the right upper quadrant from a cholecystectomy. The bladder is partly full. XR/XR KUB [id number] Impression: Negative KUB.
== END 2022-06-25 12:48 | disposition home or self-care (01) ==
PROVIDERS: PCP Family Medicine; Visit Provider Urology
DX: N20.0 Calculus of kidney (principal)
CPT/HCPCS: 74018; 81003

== ENCOUNTER 2022-08-27 11:30 | Outpatient (CLI) | payer OTHER, SELFPAY ==
--- NOTE | 2022-08-27 11:35 | MM_ITS ---
WS: [id number] BILATERAL SCREENING DIGITAL TOMOSYNTHESIS MAMMOGRAM WITH CAD HISTORY: Screening exam. COMPARISON: 08/28/2021, 08/16/2021, 04/14/2020 Bilateral CC and MLO views with tomosynthesis and synthetic mammography submitted. Computer aided det ection analyzed. Breast composition: The breasts are heterogeneously dense, which may obscure small masses. No suspici ous masses, microcalcifications or architectural distortion. Mild persistent asymmetry in the anterio r RIGHT breast. Seen only on the CC projection. No progression over multiple prior exams. Normal debbie sloane for this patient. MM/[place] [id number] IMPRESSION: BI-RADS: 2-Benign FOLLOW UP: 1 Year Follow-up
== END 2022-08-27 11:31 | disposition home or self-care (01) ==
LOC: RAD 11:30
PROVIDERS: PCP Family Medicine; Visit Provider Obstetrics & Gynecology
DX: Z12.31 Encounter for screening mammogram for malignant neoplasm of breast (principal)
CPT/HCPCS: 77063; 77067

== ENCOUNTER 2023-03-20 10:16 | Outpatient (CLI) | payer OTHER, SELFPAY ==
[2023-03-20 10:39] LABS: Basophils # 0.1 10^3/uL (0.0-0.1); Basophils % 0.5 %; Eosinophils % 0.3 %; Lymphocytes # 2.2 10^3/uL (0.8-4.8); Lymphocytes % 23.6 %; Mean Corpuscular HGB Conc 33.8 g/dL (30-55); Mean Corpuscular Hemoglobin 31.1 pg (27-33); Mean Corpuscular Volume 91.8 fl (85-98); Mean Platelet Volume 10.9 fL (7.4-10.4); Monocytes # 0.4 10^3/uL (0.2-0.9); Monocytes % 4.2 %; Neutrophils # 6.54 10^3/uL (1.8-7.7); Neutrophils % 71.1 %; Nucleated Red Blood Cells % 0 %; Platelet Count 349 10^3/cmm (157-399); Red Blood Count 4.25 10^6/uL (3.85-5.65); Red Cell Distribution Width 12.4 % (12.1-15.1); White Blood Count 9.21 10^3/uL (3.29-11.43)
[2023-03-20 10:57] LABS: Alanine Aminotransferase 13 U/L (0-33); Albumin Level 4.4 g/dL (3.5-5.2); Alkaline Phosphatase 58 U/L (35-105); Aspartate Amino Transferase 13 U/L (0-32); Blood Urea Nitrogen 8 mg/dL (6-20); Calcium 9.3 mg/dL (8.5-10.5); Carbon Dioxide 26 mmol/L (22-29); Chloride 101 mmol/L (98-107); Chol HDL Ratio 2.51 mg/dL (0.0-4.40); Cholesterol 178 mg/dL (0-200); Glomerular Filtration Rate 76.2 mL/min (90-130); Glucose 89 mg/dL (65-115); HDL Cholesterol 71 mg/dL (60-100); LDL Cholesterol Calculated 82 mg/dL (50-129); LDL HDL Ratio 1.15 RATIO (0.00-3.22); Osmolality Calculated 282 mOsm/kg (285-295); Sodium 137 mmol/L (136-145); Total Bilirubin 0.4 mg/dL (0.15-1.2); Total Protein 7.4 g/dL (6.6-8.7); Triglycerides 127 mg/dL (0-150)
[2023-03-20 11:01] LABS: Anion Gap 14.1 (5-19); Potassium 4.1 mmol/L (3.5-5.1)
== END 2023-03-20 10:17 | disposition home or self-care (01) ==
PROVIDERS: PCP Family Medicine; Visit Provider Family Medicine
DX: Z00.00 Encounter for general adult medical examination without abnormal findings (principal); Z13.6 Encounter for screening for cardiovascular disorders
CPT/HCPCS: 36415; 80053; 80061; 82043; 85025

== ENCOUNTER 2023-06-10 11:26 | Outpatient (CLI) | payer OTHER, SELFPAY ==
[2023-06-16 21:11] LABS: Gastrin <15 pg/mL (< OR = 100)
[2023-06-21 20:40] LABS: Chromogranin A LC/MS/MS 87 ng/mL (ADULTS: <311)
[2023-06-23 16:09] LABS: Serotonin Whole Blood 113 ng/mL (56-244)
== END 2023-06-10 11:27 | disposition home or self-care (01) ==
LOC: LAB 11:30
PROVIDERS: PCP Family Medicine; Visit Provider Family Medicine
DX: D3A.00 Benign carcinoid tumor of unspecified site (principal)
CPT/HCPCS: 82941; 84260; 86316

== ENCOUNTER 2023-06-11 13:26 | Outpatient (CLI) | payer OTHER, SELFPAY ==
[2023-06-21 16:55] LABS: 24 Hour Urine Volume 2100 mL; 5-HIAA, 24 Hour Urine 6.2 mg/24 h (< OR = 6.0)
== END 2023-06-11 13:27 | disposition home or self-care (01) ==
LOC: LAB 13:29
PROVIDERS: PCP Family Medicine; Visit Provider Family Medicine
DX: D3A.00 Benign carcinoid tumor of unspecified site (principal)
CPT/HCPCS: 83497

== ENCOUNTER 2023-12-25 11:05 | Outpatient (CLI) | payer OTHER, SELFPAY ==
--- NOTE | 2023-12-25 11:00 | MM_ITS ---
WS: [id number] BILATERAL SCREENING DIGITAL TOMOSYNTHESIS MAMMOGRAM WITH CAD HISTORY: screening COMPARISON: 01/27/2019, 08/27/2022, 08/28/2021 and 08/16/2021 Bilateral CC and MLO views with tomosynthesis and synthetic mammography submitted. Computer aided det ection analyzed. Breast composition: There are scattered areas of fibroglandular density. No suspicious masses, microc alcifications or architectural distortion. There are scattered asymmetries noted on prior examination s in the LEFT breast at a middle depth persists. No change since 2019. MM/[place] [id number] IMPRESSION: BI-RADS: 2-Benign FOLLOW UP: 1 Year Follow-up
== END 2023-12-25 11:06 | disposition home or self-care (01) ==
LOC: RAD 11:06
PROVIDERS: PCP Family Medicine; Visit Provider Family Medicine
DX: Z12.31 Encounter for screening mammogram for malignant neoplasm of breast (principal); R92.323 Mammographic fibroglandular density, bilateral breasts; N64.89 Other specified disorders of breast
CPT/HCPCS: 77063; 77067

== ENCOUNTER 2024-04-19 09:16 | Outpatient (CLI) | payer OTHER, SELFPAY ==
[2024-04-19 09:42] LABS: Basophils % 0.5 %; Eosinophils % 0.4 %; Hematocrit 41.8 % (36-47); Lymphocytes # 1.8 10^3/uL (0.8-4.8); Lymphocytes % 22.9 %; Mean Corpuscular Hemoglobin 31.1 pg (27-33); Mean Corpuscular Volume 91.7 fl (85-98); Mean Platelet Volume 10.8 fL (7.4-10.4); Monocytes # 0.4 10^3/uL (0.2-0.9); Monocytes % 5.3 %; Neutrophils # 5.55 10^3/uL (1.8-7.7); Neutrophils % 70.5 %; Nucleated Red Blood Cells % 0 %; Platelet Count 348 10^3/cmm (157-399); Red Blood Count 4.56 10^6/uL (3.85-5.65); Red Cell Distribution Width 12.3 % (12.1-15.1); White Blood Count 7.87 10^3/uL (3.29-11.43)
[2024-04-19 10:03] LABS: Alanine Aminotransferase 10 U/L (0-33); Albumin Level 4.3 g/dL (3.5-5.2); Alkaline Phosphatase 63 U/L (35-105); Anion Gap 15.1 (5-19); Aspartate Amino Transferase 11 U/L (0-32); Blood Urea Nitrogen 11 mg/dL (6-20); Calcium 9.2 mg/dL (8.5-10.5); Carbon Dioxide 22 mmol/L (22-29); Chloride 106 mmol/L (98-107); Chol HDL Ratio 3.51 mg/dL (0.0-4.40); Cholesterol 193 mg/dL (0-200); Globulin 3.1 g/dL (1.3-4.6); Glomerular Filtration Rate 88.6 mL/min (90-130); Glucose 102 mg/dL (65-115); HDL Cholesterol 55 mg/dL (60-100); LDL Cholesterol Calculated 99 mg/dL (50-129); Osmolality Calculated 288 mOsm/kg (285-295); Potassium 4.1 mmol/L (3.5-5.1); Sodium 139 mmol/L (136-145); Total Bilirubin 0.3 mg/dL (0.15-1.2); Total Protein 7.4 g/dL (6.6-8.7); Triglycerides 193 mg/dL (0-150)
== END 2024-04-19 09:17 | disposition home or self-care (01) ==
LOC: LAB 09:17
PROVIDERS: PCP Family Medicine; Visit Provider Family Medicine
DX: Z85.9 Personal history of malignant neoplasm, unspecified (principal); Z00.00 Encounter for general adult medical examination without abnormal findings; I10 Essential (primary) hypertension; R00.2 Palpitations
CPT/HCPCS: 36415; 80053; 80061; 82941; 84260; 85025; 86316

== ENCOUNTER 2025-02-03 10:48 | Outpatient (CLI) | payer OTHER, SELFPAY ==
--- NOTE | 2025-02-03 10:57 | MM_ITS ---
WS: [id number] BILATERAL SCREENING DIGITAL TOMOSYNTHESIS MAMMOGRAM WITH CAD HISTORY: SCREENING COMPARISON: 12/25/2023, 08/27/2022, 08/16/2021 Bilateral CC and MLO views with tomosynthesis and synthetic mammography submitted. Computer aided detection analyzed. Breast composition: The breasts are heterogeneously dense, which may obscure small masses. No suspicious masses, microcalcifications or architectural distortion. Stable appearance of the asymmetries in each breast. There are a few benign calcifications. MM/MM scr tomosynthesis [id number] IMPRESSION: BI-RADS: 2 - Benign FOLLOW UP: 1 Year Follow-up
== END 2025-02-03 10:49 | disposition home or self-care (01) ==
PROVIDERS: PCP Family Medicine; Visit Provider Family Medicine
DX: Z12.31 Encounter for screening mammogram for malignant neoplasm of breast (principal); R92.333 Mammographic heterogeneous density, bilateral breasts; R92.1 Mammographic calcification found on diagnostic imaging of breast; N64.89 Other specified disorders of breast
CPT/HCPCS: 77063; 77067

== ENCOUNTER 2025-02-04 13:15 | Outpatient (CLI) | payer OTHER, SELFPAY ==
[2025-02-04 13:48] LABS: Albumin Level 4.4 g/dL (3.5-5.2); Alkaline Phosphatase 71 U/L (35-105); Anion Gap 16.0 (5-19); Aspartate Amino Transferase 21 U/L (0-32); Blood Urea Nitrogen 12 mg/dL (6-20); Calcium 9.3 mg/dL (8.5-10.5); Carbon Dioxide 25 mmol/L (22-29); Chloride 105 mmol/L (98-107); Cholesterol 198 mg/dL (0-200); Globulin 3.0 g/dL (1.3-4.6); Glucose 165 mg/dL (65-115); HDL Cholesterol 54 mg/dL (60-100); Osmolality Calculated 297 mOsm/kg (285-295); Potassium 4.0 mmol/L (3.5-5.1); Sodium 142 mmol/L (136-145); Total Protein 7.4 g/dL (6.6-8.7); Triglycerides 217 mg/dL (0-150)
[2025-02-04 13:59] LABS: Alanine Aminotransferase 18 U/L (0-33)
== END 2025-02-04 13:16 | disposition home or self-care (01) ==
LOC: LAB 13:17
PROVIDERS: PCP Family Medicine; Visit Provider Family Medicine
DX: I10 Essential (primary) hypertension (principal)
CPT/HCPCS: 36415; 80053; 80061

== ENCOUNTER 2025-02-09 08:41 | Outpatient (CLI) | payer OTHER, SELFPAY ==
[2025-02-09 10:48] LABS: Estmated Average Glucose 105; Hemoglobin A1C 5.3 % (4.0-6.0)
== END 2025-02-09 08:42 | disposition home or self-care (01) ==
PROVIDERS: PCP Family Medicine; Visit Provider Family Medicine
DX: R73.9 Hyperglycemia, unspecified (principal)
CPT/HCPCS: 36415; 83036